=== PATIENT | female | born 1985 | race Caucasian/White ===

== ENCOUNTER 2017-02-06 08:55 | Outpatient (CLI) ==
--- NOTE | 2017-02-07 09:22 | MRI ---
EXAM: Lumbar spine MRI without contrast. HISTORY: Low back pain. COMPARISON: None. TECHNIQUE: Multiplanar, multisequence MR images were acquired of the lumbar spine without contrast. FINDINGS: Five lumbar-type vertebra are present. There is minor mid lumbar levoscoliosis. The lum bar vertebra are normal in height and intrinsic bone marrow signal. There is a small T1 and T2 hype rintense lesion in the L1 vertebra that probably represents a small benign intraosseous hemangioma. Marginal osteophytes are present in the lumbar spine and there is minor disc space narrowing and di sc desiccation at L4-5. Mild disc space narrowing is present at L5, S1. Conus medullaris ends at T 12-L1 and has normal signal intensity. The partially visualized liver, spleen, gallbladder and kidneys are unremarkable. There are no para vertebral masses. The uterus has a slightly heterogeneous echotexture in the myometrium. Pelvic ul trasound or MRI could better define the anatomy. The right ovary is of normal size and has a domina nt 2 cm x 1.5 cm follicle. L1-2: The intervertebral disc is normal. L2-3: The intervertebral disc is normal. L3-4: The intervertebral disc is normal. L4-5: There is a mild disc bulge that minimally narrows the inferior neural foramina bilaterally an d mild bilateral facet arthropathy and ligamentum flavum hypertrophy. This causes minor bilateral f oraminal stenosis. L5-S1: There is a minor posterior disc bulge that is considered physiologic and mild reactive marro w changes along the right lateral inferior endplate of L5. There is no central canal stenosis or fo raminal stenosis. IMPRESSION: 1. No lumbar disc herniations, pars interarticularis defects or central canal stenosis. 2. Mild disc bulge L4-5.
== END 2017-02-06 08:56 | disposition home or self-care (01) ==
LOC: RAD 08:55
PROVIDERS: ATTEND Family Medicine
DX: M54.5 Low back pain (principal); G89.29 Other chronic pain

== ENCOUNTER 2017-02-26 12:25 | Outpatient (CLI) ==
--- NOTE | 2017-02-26 13:24 | US ---
EXAM: PELVIC ULTRASOUND COMPLETE HISTORY: Abnormal finding of uterus on MRI. A heterogeneous echo texture of the myometrium and a d ominant 2 cm right ovarian follicle. FINDINGS: Ultrasound pelvis transvaginal. Transvaginal approach imaging was performed for improved resolution and anatomic definition. Uterine orientation is retroflexed. There is a 3.5 x 2.1 x 2.3 cm probable myometrial mass situated anteriorly which is suggestive of a fibroid. Myometrium was otherwise unremarkable. Endometrial st ripe was symmetric and within normal limits regarding thickness at 0.43 cm. The right ovary measured 3.8 x 2.7 x 3.3 cm and the left ovary 2.4 x 1.1 x 1.6 cm. The right ovary h ad a 2.6 x 2.3 x 2.9 cm dominant follicle or small cyst with no obvious complexity. Several tiny fo llicles were seen on the left ovary. Ovaries appeared have adequate blood flow. No ascites. IMPRESSION: 1. Probable 3.5 cm fibroid. 2. Retroflexed uterine orientation. 3. Unremarkable endometrium. 4. Dominant follicle on the right ovary measuring up to 2.9 cm.
== END 2017-02-26 12:26 | disposition home or self-care (01) ==
LOC: RAD 12:25
PROVIDERS: ATTEND Family Medicine
DX: M54.5 Low back pain (principal); M89.29 Other disorders of bone development and growth, multiple sites

== ENCOUNTER 2017-10-17 13:17 | Outpatient (CLI) | END 2017-10-17 13:18 | disposition home or self-care (01) | LOC: CAR 13:17 | PROVIDERS: ATTEND Family Medicine | DX: F41.9 Anxiety disorder, unspecified (principal); R00.2 Palpitations | CPT/HCPCS: 93227 ==

== ENCOUNTER 2018-06-06 14:32 | Outpatient (CLI) | END 2018-06-06 14:33 | disposition home or self-care (01) | LOC: FCC-LAB 14:32 | PROVIDERS: ATTEND Family Medicine | DX: F41.9 Anxiety disorder, unspecified (principal); Z13.220 Encounter for screening for lipoid disorders | CPT/HCPCS: 36415; 80053; 80061; 84443; 85025 ==

== ENCOUNTER 2018-06-20 15:30 | Outpatient (RCR) ==
--- NOTE | 2018-06-05 15:11 | RS.OPPTEV2 ---
Date of Note: 06/04/18 Visit #: 1 Date of Evaluation: 06/04/18 Payer Source: Medicaid Treatment Diagnosis: right LE radiculopathy, low back pain History of Condition/Mechanism of Injury:: Patient reports having low back pain for years. States her right LE radiating symptoms are more recent. States she had nerve ablation procedures at the lumbar spine. States after the procedure was performed on the right side, she has had right LE radiating pain. Prior Level of Function.....Patient was independent with: ADL's, Self Care, Work /Vocation, Caregiving, Ambulation/Mobility, Community Integration/Access Current Subjective/complaints:: Patient reports low back and right LE pain. States right LE pain is constant and almost always in the posterior aspect of the right thigh. Pain has gone down to the right foot. She denies tingling or numbness in the right LE. States she has noticed weakness in the right LE, but usually when pain is really bad. States sleep is disrupted by pain. Reports she loses about 3 hours of sleep per night due to back and leg pain. She uses ice to help relieve her pain. She reports being unable to lay on her stomach. Reports increased pain with standing and walking. States she use to walk for exercise. Reports she cannot walk a block without increased back and right LE pain. Medical History Medical History Comments:: Lumbar spine nerve ablations Surgical History: Tonsillectomy, (X2) Surgical History Comments:: Appendectomy Smoking Status: Never smoker Hx Home Medications: Paxil, Neurontin, Xanax, Meloxicam Patient's Goals: Her goal is to get relief of pain. Pain Assessment - Pain Description Pain Location: low back and right LE Pain Description: Radiating Current Pain Intensity: not quantified Worst Pain Intensity: 9/10 Functional Outcome Measure Oswestry LBP: 46 - G Codes & Severity Modifier G Codes & Modifier: NA Source of G Code score: NA Observation - Observation Posture: Forward Head, Decreased Lumbar Lordosis Gait - Gait Pattern General Gait Pattern Observation: No Deviations/Normal - ROM Lumbar Flexion: Hand reach to ankles Sidebending to Left: Reach to Lateral Joint Line Sidebending to Right: Reach to Lateral Joint Line Comments: Lumbar extension is WFL's, bilateral LE AROM is WFL's. - Strength Trunk Rotation: 4+ Good + Comments: 5/5 throughout bilateral LE's. - Special Tests HODA Test: Negative Left, Negative Right SLR Test: Negative Left, Negative Right Seated Dural Stretch Test: Negative Left, Negative Right SI Joint Compression: Negative SI Joint Distraction: Negative Comments: Right hip demonstrates slightly less ROM into ER with testing. Palpation Comments:: No tenderness reported with palpation to the lumbar spine, SI joints , or paraspinals. Sensation - Sensation Right Lower Extremity: Intact/Normal Left Lower Extremity: Intact/Normal Additional Comments: Additional Comments: SLR in spine bilaterally 50 -55 degrees. Interventions - Exercise/Activities/Manual Therapy Exercises/Activities: Patient instructed in HS and piriformis stretching for HEP. 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 She reports a history of low back pain, with more recent onset of right LE radiating pain. States this radiating pain is constant and is more intense with standing and walking. She exhibits some tightness in the right LE, compared to the left. She shows good potential to benefit from stretching to the lumbar paraspinals and LE's to improve her tolerance for standing and walking activities. She will also benefit from core strengthening and education to reduce pressure on the spine to prevent progression of back problems. Patient Education: Education of diagnosis, Body/Joint mechanics, Home Exercise Program, Home Safety, Activity Modification, Education of Plan of Care Rehab Potential: Good Short Term Goals Goal #1: Patient independent and compliant with HEP. Goal to be met by: 06/19/18 Goal #2: Right hip ER ROM equal to the Left. Goal to be met by: 06/19/18 Goal #3: SLR bilaterally 60 degrees. Goal to be met by: 06/19/18 Goal #4: Right LE pain no longer constant. Goal to be met by: 06/19/18 Group Home Goals Goal #1: Pt knows HEP and to continue ex's to maintain functional level at D/C. Goal to be met by: 07/15/18 Goal #2: Score on Oswestry LBP scale improved to 22. Goal to be met by: 07/15/18 Goal #3: Pt will tolerate prolonged standing/walking without right LE pain. Goal to be met by: 07/15/18 Goal #4: Pt able to sleep 8 hours without interruption from back or right LE pain. Goal to be met by: 07/15/18 Plan - Treatment to be Provided Procedures: Therapeutic Exercises, Therapeutic Activity, Patient Education Modalities: Electrical Stimulation, Ultrasound/Phonophoresis, Cryotherapy, Hot Packs, Mechanical Traction (lumbar traction) - Treatment Plan Frequency: 2 X week Duration: 4 weeks ORDER # VISITS AND/OR THROUGH DATE: 07/15/18 - Treatment Code (1) Lumbar radiculopathy Code(s): M54.16 - RADICULOPATHY, LUMBAR REGION Comments: M54.16
--- NOTE | 2018-06-11 11:30 | RS.OPPTDN ---
Subjective Date of Note: 06/10/18 Visit #: 2 Date of Evaluation: 06/04/18 Payer Source: Medicaid Treatment Diagnosis: right LE radiculopathy, low back pain Current Subjective/complaints:: Patient says she can't find many positions or treatments that help at home. 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 She says heat makes her back hurt worse, but has not tried it on her leg yet. She says Meloxicam is not very effective and cycles between that and neurontin at times to gain relief. - Treatment Modality: Ultrasound Parameters/Method Applied: continuous @ 1.5 w/cm2 x 12 mins to bilateral lumbar paraspinals, but with focus to the R side Patient Position: Left Sidelying Interventions - Exercise/Activities/Manual Therapy Exercises/Activities: Patient received passive stretching bilaterally, more so to the R however. SKTC, HS, Piriformis, Fig 4, and lower trunk rotation. Began pelvic stability: isometric hip flexion/abd, pillow squeezes, bridging x 12. Began education of diagnosis, postural mechanics pertaining to job and home , HEP. Total minutes of Exercise: 22 Manual Therapy: NA HOME EXERCISE PROGRAM: HS and piriformis stretching - Charges Timed Code Treatment Minutes: 34 Total Treatment Time: 34 Procedures billed for this date of service:: u/s, ex Assessment: Patient presents with moderate back pain and to the R LE. 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 She expresses some relief in this area following todays session. She demo increased muscle guarding to the lumbar paraspinals. She should improve with further consistent treatment advancing trunk stability. Patient Education: Education of diagnosis, Body/Joint mechanics, Home Exercise Program, Education of Plan of Care Patient demonstrates compliance with HEP?: Yes Short Term Goals Goal #1: Patient independent and compliant with HEP. Goal to be met by: 06/19/18 Progress towards Goal:: Progressing Goal #2: Right hip ER ROM equal to the Left. Goal to be met by: 06/19/18 Goal #3: SLR bilaterally 60 degrees. Goal to be met by: 06/19/18 Goal #4: Right LE pain no longer constant. Goal to be met by: 06/19/18 Longterm Goals Goal #1: Pt knows HEP and to continue ex's to maintain functional level at D/C. Goal to be met by: 07/15/18 Goal #2: Score on Oswestry LBP scale improved to 22. Goal to be met by: 07/15/18 Goal #3: Pt will tolerate prolonged standing/walking without right LE pain. Goal to be met by: 07/15/18 Goal #4: Pt able to sleep 8 hours without interruption from back or right LE pain. Goal to be met by: 07/15/18 Plan PLAN OF CARE EXPIRES ON:: 07/15/18 ORDER # VISITS AND/OR THROUGH DATE: 07/15/18 PLAN: Patient to continue for modalities and therex
--- NOTE | 2018-06-13 16:30 | RS.OPPTDN ---
Subjective Date of Note: 06/13/18 Visit #: 3 Date of Evaluation: 06/04/18 Payer Source: Medicaid Treatment Diagnosis: right LE radiculopathy, low back pain Current Subjective/complaints:: Patient says she is pleased that she had decreased pain following last session. She admits being skeptical, but noticed less pain to her back and R upper leg. She does say the lower lateral L leg was more sore today, but has had a lot more walking to do at school today. Pain Assessment - Pain Description Pain Location: Reduced pain to the R side of her back and R upper leg - Treatment Modality: Ultrasound Parameters/Method Applied: continuous @ 1.5 w/cm2 x 12 mins to bilateral lumbar paraspinals and SI joint with focus to the R Patient Position: Left Sidelying Interventions - Exercise/Activities/Manual Therapy Exercises/Activities: Patient received passive stretching bilaterally, more so to the R however. SKTC, HS, Piriformis, Fig 4, and lower trunk rotation. Continued with pelvic stability: isometric hip flexion/abd, pillow squeezes, bridging x 12. Hooklying hip abd with green tband to take home also. Continued with education on postural and body mechanics. Total minutes of Exercise: 20 Manual Therapy: NA HOME EXERCISE PROGRAM: HS and piriformis stretching - Charges Timed Code Treatment Minutes: 32 Total Treatment Time: 32 Procedures billed for this date of service:: u/s, ex Assessment: Patient presents with decreased pain following previous session. She appears to be ranjit all stability and stretching well. She should benefit from further progression of postural strengthening and core stability. Patient Education: Education of diagnosis, Body/Joint mechanics, Home Exercise Program Patient demonstrates compliance with HEP?: Yes Short Term Goals Goal #1: Patient independent and compliant with HEP. Goal to be met by: 06/19/18 Progress towards Goal:: Progressing Goal #2: Right hip ER ROM equal to the Left. Goal to be met by: 06/19/18 Progress towards Goal:: Progressing Goal #3: SLR bilaterally 60 degrees. Goal to be met by: 06/19/18 Progress towards Goal:: Progressing Goal #4: Right LE pain no longer constant. Goal to be met by: 06/19/18 Progress towards Goal:: Progressing Detention Goals Goal #1: Pt knows HEP and to continue ex's to maintain functional level at D/C. Goal to be met by: 07/15/18 Goal #2: Score on Oswestry LBP scale improved to 22. Goal to be met by: 07/15/18 Goal #3: Pt will tolerate prolonged standing/walking without right LE pain. Goal to be met by: 07/15/18 Goal #4: Pt able to sleep 8 hours without interruption from back or right LE pain. Goal to be met by: 07/15/18 Plan PLAN OF CARE EXPIRES ON:: 07/15/18 ORDER # VISITS AND/OR THROUGH DATE: 07/15/18 PLAN: Patient to continue BIW x 2 more weeks
--- NOTE | 2018-06-17 16:28 | RS.OPPTDN ---
Subjective Date of Note: 06/17/18 Visit #: 4 Date of Evaluation: 06/04/18 Payer Source: Medicaid Treatment Diagnosis: right LE radiculopathy, low back pain Current Subjective/complaints:: Patient says her pain in her R leg returned when tripping over her cat this morning. She says she has been doing well until then. She says the pain has calmed down since time elapsed. Pain Assessment - Pain Description Current Pain Intensity: elevated to the R low back and R LE posteriorally - Treatment Modality: Ultrasound Parameters/Method Applied: continuous @ 1.5 w/cm2 x 13 mins to the R lumbar paraspinals and SI joint Patient Position: Left Sidelying Interventions - Exercise/Activities/Manual Therapy Exercises/Activities: Patient's treatment focused on u/s and passive stretching bilaterally, but with focus to the R: SKTC, HS, Piriformis, Fig 4, and lower rotation to the L. Total minutes of Exercise: 16 Manual Therapy: NA HOME EXERCISE PROGRAM: HS and piriformis stretching - Charges Timed Code Treatment Minutes: 29 Total Treatment Time: 35 Procedures billed for this date of service:: u/s, ex Assessment: Patient presents with elevated pain to the R low back and extending down to the R LE. Initial exacerbation has improved as the day progresses, but remained more limited in flexibility during stretches today than at previous session (particularly with HS and piriformis). Ultrasound was used for a longer period to improve her pain as she did express was successful in doing so. Recommended her to use ice tonight and stretch. Patient Education: Body/Joint mechanics, Home Exercise Program Patient demonstrates compliance with HEP?: Yes Short Term Goals Goal #1: Patient independent and compliant with HEP. Goal to be met by: 06/19/18 Progress towards Goal:: Progressing Goal #2: Right hip ER ROM equal to the Left. Goal to be met by: 06/19/18 Progress towards Goal:: Progressing Goal #3: SLR bilaterally 60 degrees. Goal to be met by: 06/19/18 Progress towards Goal:: Progressing Goal #4: Right LE pain no longer constant. Goal to be met by: 06/19/18 Progress towards Goal:: Progressing Usp Goals Goal #1: Pt knows HEP and to continue ex's to maintain functional level at D/C. Goal to be met by: 07/15/18 Goal #2: Score on Oswestry LBP scale improved to 22. Goal to be met by: 07/15/18 Goal #3: Pt will tolerate prolonged standing/walking without right LE pain. Goal to be met by: 07/15/18 Goal #4: Pt able to sleep 8 hours without interruption from back or right LE pain. Goal to be met by: 07/15/18 Plan PLAN OF CARE EXPIRES ON:: 07/15/18 ORDER # VISITS AND/OR THROUGH DATE: 07/15/18 PLAN: Patient to continue with modalities and progress core and postural strengthening.
--- NOTE | 2018-06-25 15:17 | RS.OPPTDN ---
Subjective Date of Note: 06/20/18 Visit #: 5 Date of Evaluation: 06/04/18 Payer Source: Medicaid Treatment Diagnosis: right LE radiculopathy, low back pain Current Subjective/complaints:: Patient says she is feeling better today. Reports less R sided back pain, but just fatigued. Pain Assessment - Pain Description Pain Location: R lower lumbar and SI and mid posterior thigh - Treatment Modality: Ultrasound Parameters/Method Applied: continuous @ 1.5 w/cm2 x 12 mins to R lumbar paraspinals and to SI joint Patient Position: Left Sidelying Interventions - Exercise/Activities/Manual Therapy Exercises/Activities: Patient's treatment focused on u/s and passive stretching bilaterally, but with focus to the R: SKTC, HS, Piriformis, Fig 4, and lower rotation to the L. Resumed ball squeezes, bridging, SLR, QS, isometric hip abd/ flexion x 10. Total minutes of Exercise: 22 Manual Therapy: NA HOME EXERCISE PROGRAM: HS and piriformis stretching. Added core exercises of: ball squeezes, isometrics, bridging - Charges Timed Code Treatment Minutes: 34 Total Treatment Time: 40 Procedures billed for this date of service:: u/s, ex Assessment: Improved pain level today and decreased frequency of numbness/ting to the R LE. Patient able to ranjit all progressive therex today without c/o's. Short Term Goals Goal #1: Patient independent and compliant with HEP. Goal to be met by: 06/19/18 Progress towards Goal:: Progressing Goal #2: Right hip ER ROM equal to the Left. Goal to be met by: 06/19/18 Progress towards Goal:: Progressing Goal #3: SLR bilaterally 60 degrees. Goal to be met by: 06/19/18 Progress towards Goal:: Progressing Goal #4: Right LE pain no longer constant. 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 Goal to be met by: 07/15/18 Goal #2: Score on Oswestry LBP scale improved to 22. Goal to be met by: 07/15/18 Goal #3: Pt will tolerate prolonged standing/walking without right LE pain. Goal to be met by: 07/15/18 Goal #4: Pt able to sleep 8 hours without interruption from back or right LE pain. Goal to be met by: 07/15/18 Plan PLAN OF CARE EXPIRES ON:: 07/15/18 ORDER # VISITS AND/OR THROUGH DATE: 07/15/18 PLAN: continue for modalities and pelvic strengthening.
== END 2018-06-21 23:59 ==
PROVIDERS: ATTEND Radiology Diagnostic Radiology
DX: M47.816 Spondylosis without myelopathy or radiculopathy, lumbar region (principal)

== ENCOUNTER 2018-06-25 15:27 | Outpatient (RCR) ==
--- NOTE | 2018-07-02 16:28 | RS.OPPTDN ---
Subjective Date of Note: 06/25/18 Visit #: 6 Date of Evaluation: 06/04/18 Payer Source: Medicaid Treatment Diagnosis: right LE radiculopathy, low back pain Current Subjective/complaints:: Patient says that she has had a good weekend regarding back pain. She says it is very low now even with working. She denies symptoms to the R LE. She says she has been able to walk more without the pain she had previously. During end of u/s treatment, patient responded that her insurance did change Jun.22, but may not take effect until Jun.28. Pain Assessment - Pain Description Pain Location: little to none currently - Treatment Modality: Ultrasound Parameters/Method Applied: continuous @ 1.5 w/cm2 x 10 mins to the R lumbar paraspinals Patient Position: Left Sidelying Interventions - Exercise/Activities/Manual Therapy Exercises/Activities: Patient's treatment focused on u/s and passive stretching bilaterally, but with continued focus to the R: SKTC, HS, Piriformis, Fig 4, and lower rotation to the L. Isometric hip flexion/abd, SLR, Ball squeezes, bridging with LE lift (x10) all 2x10. Patient is given tbands to progress to at home and discussed D/c as she informs us insurance has changed and no longer covered as of this week. Total minutes of Exercise: 22 Manual Therapy: NA HOME EXERCISE PROGRAM: HS and piriformis stretching. Bridging, pillow squeezes , tband hip abd, SLR - Charges Timed Code Treatment Minutes: 32 Total Treatment Time: 35 Procedures billed for this date of service:: No charges due to insurance change Assessment: Reduced pain level and increased toleration for prolonged walking at work. Significant decrease in radicular symptoms and frequency. Pending further appts based on insurance approval. Patient Education: Education of diagnosis, Body/Joint mechanics, Home Exercise Program Patient demonstrates compliance with HEP?: Yes Short Term Goals Goal #1: Patient independent and compliant with HEP. Goal to be met by: 06/19/18 Progress towards Goal:: Met Goal #2: Right hip ER ROM equal to the Left. Goal to be met by: 06/19/18 Progress towards Goal:: Met Goal #3: SLR bilaterally 60 degrees. Goal to be met by: 06/19/18 Progress towards Goal:: Met Goal #4: Right LE pain no longer constant. 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 Goal to be met by: 07/15/18 Progress towards goal: Progressing Goal #2: Score on Oswestry LBP scale improved to 22. Goal to be met by: 07/15/18 Progress towards goal: Progressing Goal #3: Pt will tolerate prolonged standing/walking without right LE pain. Goal to be met by: 07/15/18 Progress towards goal: Progressing Goal #4: Pt able to sleep 8 hours without interruption from back or right LE pain. Goal to be met by: 07/15/18 Progress towards goal: Progressing Plan PLAN OF CARE EXPIRES ON:: 07/15/18 ORDER # VISITS AND/OR THROUGH DATE: 07/15/18 PLAN: Patient and our dept chose to D/c as she has voiced significant improvement in pain and able to ranjit increased amb before pain radiates to the R LE.
--- NOTE | 2018-07-02 16:31 | RS.QUICKDC ---
Discharge from PT Date of Discharge: 07/02/18 Number of Visits: 6 Reason for Discharge: Patient attended for u/s and therex for her low back and R radiculopathy. She voiced improvement with pain and ability to amb longer before radiating symptoms are present. She demo increased hamstring flexibility as well as into the R piriformis. She has a full HEP that was progressed with tbands. She expressed satisfaction with her results and encouraged to continue proper body mechanics to improve chances of return LBP/ radiculopathy.
== END 2018-07-21 23:59 ==
PROVIDERS: ATTEND Radiology Diagnostic Radiology
DX: M47.816 Spondylosis without myelopathy or radiculopathy, lumbar region (principal)

== ENCOUNTER 2019-01-20 11:17 | Outpatient (CLI) | END 2019-01-20 11:18 | disposition home or self-care (01) | LOC: RHC-LAB 11:17 → FCC-LAB 11:18 | PROVIDERS: ATTEND Nurse Practitioner Family | DX: Z02.1 Encounter for pre-employment examination (principal) | CPT/HCPCS: 80306; 81001 ==

== ENCOUNTER 2019-03-26 10:51 | Outpatient (POV) | END 2019-03-26 17:00 | LOC: OUTPT 10:51 | PROVIDERS: ATTEND Otolaryngology | DX: H91.90 Unspecified hearing loss, unspecified ear (principal) ==